=== PATIENT | female | born 1955 ===

== ENCOUNTER 2016-05-17 10:46 | Emergency (ER) | payer BC, OTHER ==
[2016-05-17 10:56] VITALS: BMI 30.7
[2016-05-17 10:57] VITALS: BP 141/65; PULSE 75; RESP 19; TEMP 98.3; O2SAT 97
--- NOTE | 2016-05-17 11:30 | ED PDOC ---
HPI: Headache Time Seen by Provider: 05/17/16 11:17 Chief Complaint (Nursing): Headache Chief Complaint (Provider): Headache History Per: Patient History/Exam Limitations: no limitations Onset/Duration Of Symptoms: Days Current Symptoms Are (Timing): Still Present Severity: Mild Quality: "Pain" Preceeding Symptoms: None Additional Complaint(s): Patient is a 60 year old female with a history of migraines, presents to ED for headache for 2 days. Patient states headache is associated with right sided tongue pain that radiates into her right shoulder. Patient notes that she normally gets photophobia and light sensitivity with migraines, has had light sensitivity since onset. Denies weakness or numbness. Past Medical History Reviewed: Historical Data, Nursing Documentation, Vital Signs Vital Signs: Last Vital Signs Temp 98.3 F 05/17/16 10:56 Pulse 75 05/17/16 10:56 Resp 19 05/17/16 10:56 BP 141/65 05/17/16 10:56 Pulse Ox 97 05/17/16 10:56 - Medical History PMH: Anxiety, Arthritis, Depression, Gastritis, Migraine Denies: HIV, Chronic Kidney Disease - Surgical History Surgical History: Cholecystectomy - Family History Family History: States: No Known Family Hx - Living Arrangements Living Arrangements: With Family - Home Medications Home Medications: Ambulatory Orders Medication Instructions Recorded Famotidine [Pepcid] 40 mg PO HS #0 tab 10/25/15 traMADol [Ultram] 50 mg PO TID #30 tab 10/25/15 Cyclobenzaprine [Cyclobenzaprine 10 mg PO TID #10 tab 05/17/16 HCl] Naproxen [Naprosyn] 500 mg PO Q12H #20 tab 05/17/16 - Allergies Allergies/Adverse Reactions: Allergies Allergy/AdvReac Type Severity Reaction Status Date / Time acetaminophen Allergy URTICARIA Verified 01/23/16 13:58 [From Tylenol-Codeine #3] codeine phosphate Allergy URTICARIA Verified 01/23/16 13:58 [From Tylenol-Codeine #3] Iodinated Contrast Media - Allergy URTICARIA Verified 01/23/16 13:58 Oral and [Iodinated Contrast Media - IV Dye] pollen extracts Allergy SHORTNESS Verified 01/23/16 13:58 OF BREATH Review of Systems ROS Statement: Except As Marked, All Systems Reviewed And Found Negative Constitutional: Negative for: Fever ENT: Positive for: Other (Tongue pain) Cardiovascular: Negative for: Chest Pain Respiratory: Negative for: Shortness of Breath Gastrointestinal: Negative for: Abdominal Pain Musculoskeletal: Positive for: Shoulder Pain Neurological: Positive for: Headache. Negative for: Weakness, Numbness Physical Exam - Reviewed Nursing Documentation Reviewed: Yes Vital Signs Reviewed: Yes - Physical Exam Appears: Positive for: Non-toxic, No Acute Distress Head Exam: Positive for: ATRAUMATIC Skin: Positive for: Normal Color, Warm Eye Exam: Positive for: Normal appearance, EOMI, PERRL ENT: Positive for: Normal ENT Inspection (Tongue (-) swelling, lesions, wounds, tenderness ) Neck: Positive for: Normal, Painless ROM, Supple Extremity: Positive for: Normal ROM. Negative for: Pedal Edema Neurologic/Psych: Positive for: Alert, commercial credit specialist II-XII (grossly intact), Oriented. Negative for: Motor/Sensory Deficits - ECG O2 Sat by Pulse Oximetry: 97 (RA) Pulse Ox Interpretation: Normal Medical Decision Making Medical Decision Making: Time: 1125 Initial impression: Migraine Initial plan: -- CT-head and neck Scribe Attestation: Documented by Denise Alonso acting as a scribe for Lalit Barker MD MD Scribe Attestation: All medical record entries made by the Scribe were at my direction and personally dictated by me. I have reviewed the chart and agree that the record accurately reflects my personal performance of the history, physical exam, medical decision making, and the department course for this patient. I have also personally directed, reviewed, and agree with the discharge instructions and disposition. Disposition - Clinical Impression Clinical Impression: Migraine, Radiculopathy of cervical spine - Patient ED Disposition Is Patient to be Admitted: No Counseled Patient/Family Regarding: Studies Performed, Diagnosis, Need For Followup, Rx Given - Disposition Referrals: Justino Guzmán MD [Staff Provider] - Disposition: Routine/Home Disposition Time: 12:45 Condition: FAIR Prescriptions: Cyclobenzaprine [Cyclobenzaprine HCl] 10 mg PO TID #10 tab Naproxen [Naprosyn] 500 mg PO Q12H #20 tab Instructions: Migraine Headache (ED), Cervical Radiculopathy (ED) Print Language: TUVALU[place]
--- NOTE | 2016-05-17 12:04 | CT ---
PROCEDURE: CT HEAD WITHOUT CONTRAST. HISTORY: 10/24/2015 COMPARISON: None available. TECHNIQUE: Axial computed tomography images were obtained through the head/brain without intravenous contrast. Radiation dose: Total exam DLP = 783.33 mGy-cm. This CT exam was performed using one or more of the following dose reduction techniques: Automated exposure control, adjustment of the mA and/or kV according to patient size, and/or use of iterative reconstruction technique. FINDINGS: HEMORRHAGE: No intracranial hemorrhage. BRAIN: Javier-white matter differentiation is preserved. There is no mass, mass effect or abnormal extra-axial fluid collection. There is normal density in the larger dural venous sinuses. VENTRICLES: The ventricles are normal in size, shape and configuration. CALVARIUM: The skull base and calvarium are normal. PARANASAL SINUSES: Predominantly clear. MASTOID AIR CELLS: Predominantly clear. OTHER FINDINGS: None. IMPRESSION: No acute intracranial abnormality.
--- NOTE | 2016-05-17 12:17 | CT ---
PROCEDURE: CT Cervical Spine without contrast HISTORY: Neck pain COMPARISON: None available. TECHNIQUE: Axial computed tomography images were obtained of the cervical spine without the use of intravenous contrast. Coronal and sagittal reformatted images were created and reviewed. Radiation dose: Total exam DLP = move mGy-cm. This CT exam was performed using one or more of the following dose reduction techniques: Automated exposure control, adjustment of the mA and/or kV according to patient size, and/or use of iterative reconstruction technique. FINDINGS: VERTEBRAE: There is straightening of the cervical spine with loss of normal cervical lordosis. Vertebral alignment is normal. Vertebral height is maintained. There is no acute fracture or traumatic anterior listhesis. DISCS/SPINAL CANAL/NEURAL FORAMINA: There is mild multilevel degenerative disc disease with anterior osteophytes at C4, C5 and C6, mild reduced disc heights at C5-6 and C6-7 and multilevel facet arthropathy, worse at C5-6 with moderate right neural foraminal stenosis. No spinal canal stenosis. PARASPINAL SOFT TISSUES: There is multifocal nuchal ligament ossification at C5, C6 and C7. OTHER FINDINGS: None. IMPRESSION: No acute fracture or traumatic anterior listhesis. Mild multilevel degenerative disc disease, worse at C5-6 with moderate right neural foraminal stenosis. No spinal canal stenosis. Straightening of the cervical spine may be positional or related to muscle spasm.
== END 2016-05-17 13:10 | disposition home or self-care (01) ==
LOC: H.ER 10:46
DX: M54.12 Radiculopathy, cervical region (principal); G43.909 Migraine, unspecified, not intractable, without status migrainosus

== ENCOUNTER 2016-07-07 06:30 | Emergency (ER) | payer BC, OTHER ==
[2016-07-07 06:31] VITALS: BMI 30.7
[2016-07-07 06:48] VITALS: BP 144/79; PULSE 78; RESP 14; TEMP 98.2; O2SAT 98
--- NOTE | 2016-07-07 07:27 | ED PDOC ---
HPI: Female Pain Time Seen by Provider: 07/07/16 07:02 Chief Complaint (Nursing): Female Genitourinary Chief Complaint (Provider): Female Genitourinary History Per: Patient History/Exam Limitations: no limitations Onset/Duration Of Symptoms: Days Current Symptoms Are (Timing): Still Present Severity: Mild Quality Of Discomfort: "Pain" Associated Symptoms: denies: Fever, Nausea, Urinary Symptoms Alleviating Factors: None Additional Complaint(s): Patient is a 60 year old female who presents to ED for evaluation of abdominal pain and pressure for 6 days. Patient notes pain is suprapubic and worsened with bending over. Denies fever, vaginal bleeding, vaginal discharge, hematuria or dysuria. States D&C 1 month ago for polyps but has been fine since. Past Medical History Reviewed: Historical Data, Nursing Documentation, Vital Signs Vital Signs: Last Vital Signs Temp 98.2 F 07/07/16 06:33 Pulse 78 07/07/16 06:33 Resp 14 07/07/16 06:33 BP 144/79 07/07/16 06:33 Pulse Ox 98 07/07/16 06:33 - Medical History PMH: Anxiety, Arthritis, Depression, Gastritis, Migraine Denies: HIV, Chronic Kidney Disease - Surgical History Surgical History: Cholecystectomy - Family History Family History: States: No Known Family Hx - Living Arrangements Living Arrangements: With Family - Social History Current smoker - smoking cessation education provided: No Alcohol: None Drugs: Denies - Home Medications Home Medications: Ambulatory Orders Medication Instructions Recorded Famotidine [Pepcid] 40 mg PO HS #0 tab 10/25/15 traMADol [Ultram] 50 mg PO TID #30 tab 10/25/15 Cyclobenzaprine [Cyclobenzaprine 10 mg PO TID #10 tab 05/17/16 HCl] Naproxen [Naprosyn] 500 mg PO Q12H #20 tab 05/17/16 Nitrofurantoin Macrocrystals 100 mg PO BID #9 cap 07/07/16 [Macrobid] Phenazopyridine [Pyridium] 200 mg PO TID PRN #6 tab 07/07/16 - Allergies Allergies/Adverse Reactions: Allergies Allergy/AdvReac Type Severity Reaction Status Date / Time acetaminophen Allergy URTICARIA Verified 07/07/16 06:48 [From Tylenol-Codeine #3] Iodinated Contrast Media - Allergy URTICARIA Verified 07/07/16 06:48 Oral and [Iodinated Contrast Media - IV Dye] pollen extracts Allergy SHORTNESS Verified 07/07/16 06:48 OF BREATH Review of Systems ROS Statement: Except As Marked, All Systems Reviewed And Found Negative Constitutional: Negative for: Fever, Chills Gastrointestinal: Positive for: Abdominal Pain. Negative for: Nausea, Vomiting , Diarrhea Genitourinary Female: Negative for: Dysuria, Frequency, Hematuria, Vaginal Discharge, Vaginal Bleeding Musculoskeletal: Negative for: Back Pain Skin: Negative for: Rash Neurological: Negative for: Weakness, Numbness Physical Exam - Reviewed Nursing Documentation Reviewed: Yes Vital Signs Reviewed: Yes - Physical Exam Appears: Positive for: Non-toxic, No Acute Distress Skin: Positive for: Normal Color, Warm. Negative for: Rash Eye Exam: Positive for: Normal appearance, PERRL Neck: Positive for: Normal, Painless ROM, Supple Cardiovascular/Chest: Positive for: Regular Rate, Rhythm. Negative for: Murmur Respiratory: Positive for: Normal Breath Sounds. Negative for: Respiratory Distress Gastrointestinal/Abdominal: Positive for: Soft, Tenderness (mild suprapubic). Negative for: Distended, Guarding, Rebound Back: Positive for: Normal Inspection. Negative for: L CVA Tenderness, R CVA Tenderness Extremity: Positive for: Normal ROM. Negative for: Pedal Edema Neurologic/Psych: Positive for: Alert, Oriented. Negative for: Motor/Sensory Deficits - Laboratory Results Result Diagrams: 07/07/16 07:25 07/07/16 07:25 - ECG O2 Sat by Pulse Oximetry: 98 (RA) Pulse Ox Interpretation: Normal - CT Scan/US Pelvic ultrasound Other Rad Studies (CT/US): Radiology Report Reviewed (The uterus is heterogeneous nonspecific.) Medical Decision Making Medical Decision Making: Time: 714 Initial impression: Abdominal pain Initial plan: -- CMP -- Urine dip -- CBC -- PT/PTT -- Morphine 2mg IV -- U/A -- U/S Scribe Attestation: Documented by Denise Alonso acting as a scribe for Audrey Godoy MD MD Scribe Attestation: All medical record entries made by the Scribe were at my direction and personally dictated by me. I have reviewed the chart and agree that the record accurately reflects my personal performance of the history, physical exam, medical decision making, and the department course for this patient. I have also personally directed, reviewed, and agree with the discharge instructions and disposition. Disposition - Clinical Impression Clinical Impression: Urinary tract infection - Disposition Referrals: Justino Guzmán MD [Family Provider] - Disposition: Routine/Home Disposition Time: 09:21 Condition: STABLE Prescriptions: Nitrofurantoin Macrocrystals [Macrobid] 100 mg PO BID #9 cap Phenazopyridine [Pyridium] 200 mg PO TID PRN #6 tab PRN Reason: Bladder Spasm Instructions: Urinary Tract Infection in Women (ED) Print Language: PASHT[place]
[2016-07-07 07:52] LABS: BASO % 0.4 % (0.0-2.0); EOS % 0.3 % (0.0-4.0); HEMATOCRIT 38.6 % (34.0-47.0); LYMPH # 1.2 K/uL (1.0-4.3); MEAN CORPUSCULAR HEMOGLOBIN 30.3 pg (27.0-31.0); MEAN CORPUSCULAR HGB CONC 33.2 g/dL (33.0-37.0); MEAN PLATELET VOLUME 9.3 fl (7.2-11.7); MONO # 0.6 K/uL (0.0-0.8); MONO % 6.9 % (0.0-10.0); NEUT # 6.3 K/uL (1.8-7.0); NEUT % 77.4 % (50.0-75.0); WHITE BLOOD COUNT 8.1 K/uL (4.8-10.8)
[2016-07-07 08:08] LABS: RBC URINE 8 /hpf (0-3); URINE BACTERIA RARE (<OCC); URINE BILIRUBIN NEGATIVE (NEGATIVE); URINE BLOOD MODERATE (NEGATIVE); URINE COLOR YELLOW (YELLOW); URINE GLUCOSE (UA) NEG (Normal); URINE KETONE NEGATIVE (NEGATIVE); URINE LEUKOCYTE ESTERASE LARGE Leu/uL (Negative); URINE PROTEIN NEGATIVE (NEGATIVE); URINE UROBILINOGEN 0.2-1.0 mg/dL (0.2-1.0); WBC URINE 39 /hpf (0-5)
[2016-07-07 08:09] LABS: PARTIAL THROMBOPLASTIN TIME 28.2 SECONDS (23.3-32.5)
[2016-07-07 08:11] LABS: ALB/GLOB RATIO 1.5 (1.0-2.1); ALKALINE PHOSPHATASE 114 U/L (38-126); ALT/SGPT 45 U/L (9-52); AST/SGOT 37 U/L (14-36); BILIRUBIN,TOTAL 0.6 mg/dl (0.2-1.3); BLOOD UREA NITROGEN 13 mg/dl (7-17); CALCIUM 9.7 mg/dL (8.4-10.2); CARBON DIOXIDE 24 mmol/L (22-30); CHLORIDE 106 mmol/L (98-107); GFR AFRICAN-AMERICAN > 60; GLUCOSE,RANDOM 102 mg/dL (65-105); POTASSIUM 3.7 MMOL/L (3.6-5.0); SODIUM 141 mmol/l (132-148); TOTAL PROTEIN 7.9 G/DL (6.3-8.2)
--- NOTE | 2016-07-07 10:00 | US ---
HISTORY: Suprapubic pain COMPARISON: None available. TECHNIQUE: Transvaginal sonographic evaluation of the pelvis performed. FINDINGS: UTERUS: Measures approximately 6.4 x 4.9 x 3.7 cm cm. The uterus exhibits heterogeneous echotexture however no discrete fibroid is identified. ENDOMETRIUM: Measures approximately 5.8 mm mm in diameter. Unremarkable. CERVIX: No cervical abnormality identified. RIGHT OVARY: Measures approximately 1.6 x 2.1 x 1.5 cm. No solid mass. Normal flow. LEFT OVARY: Measures approximately 0.81 x 1.4 x 1.8 cm. No solid mass. Normal flow. FREE FLUID: No significant free fluid noted. OTHER FINDINGS: None. IMPRESSION: The uterus is heterogeneous nonspecific.
== END 2016-07-07 09:34 | disposition home or self-care (01) ==
LOC: H.ER 06:30
DX: N39.0 Urinary tract infection, site not specified (principal); Z86.59 Personal history of other mental and behavioral disorders
CPT/HCPCS: 76830; 80053; 81003; 85025; 85610; 85730; 87086; 96374; 99283; J2270

== ENCOUNTER 2018-04-21 14:19 | Emergency (ER) | payer BC, OTHER ==
[2018-04-21 14:19] VITALS: BMI 30.7
[2018-04-21 14:28] VITALS: RESP 20; O2SAT 98
--- NOTE | 2018-04-21 15:26 | ED PDOC ---
HPI: Headache Time Seen by Provider: 04/21/18 15:06 Chief Complaint (Nursing): Dizziness/Lightheaded Chief Complaint (Provider): neck pain History Per: Patient History/Exam Limitations: no limitations Onset/Duration Of Symptoms: Other (severe intensity lasted for about 15 minutes and at time associate with almost blacking out and lightheadedness and feeling weak in entire body) Current Symptoms Are (Timing): Better (but still has some pain to RIGHT side of head) Associated Symptoms: Photophobia, Extremity Weakness (bilateral x 4). denies: Nausea, Vomiting Additional Complaint(s): Similar history of headaches/neck pain in the past Also feeling of anxiety in chest PMD Dr Jon Past Medical History Reviewed: Historical Data, Nursing Documentation, Vital Signs Vital Signs: Last Vital Signs Temp 97.4 F L 04/21/18 14:27 Pulse 66 04/21/18 14:27 Resp 20 04/21/18 14:27 BP 166/81 H 04/21/18 14:27 Pulse Ox 98 04/21/18 14:27 - Medical History PMH: Anxiety, Arthritis, Depression, Gastritis, Migraine Denies: HIV, Chronic Kidney Disease - Surgical History Surgical History: Cholecystectomy Other surgeries: Bilateral knee - Family History Family History: States: Stroke - Social History Current smoker - smoking cessation education provided: No - Home Medications Home Medications: Ambulatory Orders Medication Instructions Recorded Famotidine [Pepcid] 40 mg PO HS #0 tab 10/25/15 traMADol [Ultram] 50 mg PO TID #30 tab 10/25/15 Cyclobenzaprine [Cyclobenzaprine 10 mg PO TID #10 tab 05/17/16 HCl] Naproxen [Naprosyn] 500 mg PO Q12H #20 tab 05/17/16 Nitrofurantoin Macrocrystals 100 mg PO BID #9 cap 07/07/16 [Macrobid] Phenazopyridine [Pyridium] 200 mg PO TID PRN #6 tab 07/07/16 Cyclobenzaprine [Flexeril] 5 mg PO Q8 PRN #15 tab 04/21/18 Lidocaine 5% [Lidoderm] 1 ea TD DAILY PRN #20 patch 04/21/18 Naproxen [Naprosyn] 1 tab PO BID PRN #30 tab 04/21/18 - Allergies Allergies/Adverse Reactions: Allergies Allergy/AdvReac Type Severity Reaction Status Date / Time acetaminophen Allergy URTICARIA Verified 04/21/18 14:29 [From Tylenol-Codeine #3] Iodinated Contrast- Oral and Allergy URTICARIA Verified 04/21/18 14:29 IV Dye [Iodinated Contrast Media - IV Dye] pollen extracts Allergy SHORTNESS Verified 04/21/18 14:29 OF BREATH Review of Systems ROS Statement: Except As Marked, All Systems Reviewed And Found Negative (and as per HPI) Constitutional: Positive for: Weakness Eyes: Positive for: Vision Change (blacked out) Cardiovascular: Positive for: Chest Pain, Light Headedness Musculoskeletal: Positive for: Neck Pain, Back Pain Neurological: Positive for: Weakness, Headache, Dizziness. Negative for: Seizur es Psych: Positive for: Anxiety, Depression Physical Exam - Reviewed Nursing Documentation Reviewed: Yes Vital Signs Reviewed: Yes - Physical Exam Appears: Positive for: Non-toxic, No Acute Distress Head Exam: Positive for: ATRAUMATIC, NORMOCEPHALIC Skin: Positive for: Warm, Dry Eye Exam: Positive for: EOMI, PERRL ENT: Negative for: Pharyngeal Erythema, Tonsillar Exudate Neck: Positive for: Painless ROM (but tenderness along RIGHT paraspinal neck), Supple Cardiovascular/Chest: Positive for: Regular Rate, Rhythm. Negative for: Edema, Murmur Respiratory: Positive for: Normal Breath Sounds. Negative for: Respiratory Distress Gastrointestinal/Abdominal: Positive for: Soft. Negative for: Tenderness Back: Positive for: Normal Inspection. Negative for: Muscle Spasm Extremity: Positive for: Normal ROM. Negative for: Deformity Lymphatic: Negative for: Adenopathy Neurological/Psych: Positive for: Awake, Alert, Oriented. Negative for: M otor/Sensory Deficits, Facial Droop - Laboratory Results Result Diagrams: 04/21/18 16:01 04/21/18 16:01 - ECG O2 Sat by Pulse Oximetry: 98 Pulse Ox Interpretation: Normal - Progress ED Course And Treament: Reviewed previous charts and pt has visits with similar presentation. Labs unremarkable Clinical findings most consistent with acute on chronic cervical radiculopathy or migraine. Pt felt better after ER treatment. Advised rest and f/u PMD> Re-evaluation Time: 17:45 Condition: Improved Disposition - Clinical Impression Clinical Impression: Migraine, Cervical pain (neck) - Disposition Referrals: Justino Jon MD [Staff Provider] - (VISITA DR JON EN 2-3 BUST[facility] A [facility]) Disposition: Routine/Home Disposition Time: 17:45 Condition: IMPROVED Prescriptions: Cyclobenzaprine [Flexeril] 5 mg PO Q8 PRN #15 tab PRN Reason: muscle spasm Lidocaine 5% [Lidoderm] 1 ea TD DAILY PRN #20 patch PRN Reason: PAIN Naproxen [Naprosyn] 1 tab PO BID PRN #30 tab PRN Reason: Pain Instructions: Radiculopathy (DC), Headache, Adult (DC) Forms: [facility] ED School/Work Excuse Print Language: [place]
[2018-04-21 16:21] LABS: BASO # 0.1 K/uL (0.0-0.2); EOS # 0.1 K/uL (0.0-0.7); EOS % 1.8 % (0.0-4.0); HEMOGLOBIN 12.5 g/dL (12.0-16.0); LYMPH # 2.2 K/uL (1.0-4.3); MEAN CELL VOLUME 91.1 fl (81.0-99.0); MEAN CORPUSCULAR HEMOGLOBIN 30.4 pg (27.0-31.0); MEAN CORPUSCULAR HGB CONC 33.4 g/dL (33.0-37.0); MEAN PLATELET VOLUME 9.7 fl (7.2-11.7); MONO # 0.6 K/uL (0.0-0.8); MONO % 9.4 % (0.0-10.0); NEUT # 3.2 K/uL (1.8-7.0); NEUT % 51.8 % (50.0-75.0); RBC 4.12 Mil/uL (3.80-5.20); RED CELL DISTRIBUTION WIDTH 13.3 % (11.5-14.5); WHITE BLOOD COUNT 6.2 K/uL (4.8-10.8)
[2018-04-21 16:34] LABS: INR 0.9; PROTHROMBIN TIME 10.2 Seconds (9.8-13.1)
[2018-04-21 16:36] LABS: ALB/GLOB RATIO 1.4 (1.0-2.1); ALBUMIN 4.3 g/dL (3.5-5.0); ALT/SGPT 62 U/L (9-52); AST/SGOT 45 U/L (14-36); BLOOD UREA NITROGEN 11 mg/dl (7-17); CALCIUM 9.6 mg/dL (8.4-10.2); GFR NON-AFRICAN AMERICAN > 60; PARTIAL THROMBOPLASTIN TIME 37.7 Seconds (25.6-37.1)
[2018-04-21 17:08] LABS: SQUAMOUS EPITHIAL 2 /hpf (0-5); URINE BILIRUBIN NEGATIVE (NEGATIVE); URINE BLOOD NEGATIVE (NEGATIVE); URINE CLARITY CLEAR (Clear); URINE COLOR STRAW (YELLOW); URINE GLUCOSE (UA) NEG (NEGATIVE); URINE LEUKOCYTE ESTERASE SMALL Leu/uL (Negative); URINE PROTEIN NEGATIVE (NEGATIVE); URINE UROBILINOGEN 0.2-1.0 mg/dL (0.2-1.0)
[2018-04-21 17:57] VITALS: BP 118/78; PULSE 72; TEMP 98
== END 2018-04-21 17:57 | disposition home or self-care (01) ==
LOC: H.ER 14:19
DX: G43.909 Migraine, unspecified, not intractable, without status migrainosus (principal); M54.2 Cervicalgia; Z88.5 Allergy status to narcotic agent; Z88.6 Allergy status to analgesic agent; Z88.8 Allergy status to other drugs, medicaments and biological substances
CPT/HCPCS: 80053; 81003; 82948; 83735; 84100; 84484; 85025; 85610; 85730; 86850; 86900; 87086; 96374; 99285; J1885